=== PATIENT | female | born 1960 | race Caucasian/White ===

== ENCOUNTER 2022-08-07 13:25 | Outpatient (CLI) | payer BC ==
[2022-08-07 14:48] LABS: BASOPHILS % (AUTO) 0.5 % (0-1); EOSINOPHILS # (AUTO) 0.2 X10'3 (0-0.9); EOSINOPHILS % (AUTO) 1.8 % (0-6); LYMPHOCYTES # (AUTO) 1.8 X10'3 (1.1-4.8); LYMPHOCYTES % (AUTO) 21.1 % (21-51); MEAN CORPUSCULAR HEMOGLOBIN 29.3 PG (27.0-31.0); MEAN CORPUSCULAR HGB CONC 32.8 g/dL (33.0-36.5); MEAN PLATELET VOLUME 8.9 FL (7.4-10.4); MONOCYTES # (AUTO) 0.4 X10'3 (0-0.9); MONOCYTES % (AUTO) 5.3 % (2-12); NEUTROPHILS % (AUTO) 71.3 % (42-75); PRE OP HEMATOCRIT 42.2 % (35.0-45.0); PRE OP HEMOGLOBIN 13.9 g/dL (12.0-16.0); PRE OP PLATELET COUNT 199 X10'3 (140-440); RED BLOOD COUNT 4.74 X10'6 (4.20-5.60); RED CELL DISTRIBUTION WIDTH 13.6 % (11.5-14.5)
[2022-08-07 14:57] LABS: HEMOGLOBIN A1C > 12.0 % (4.5-6.2)
[2022-08-07 15:12] LABS: ALBUMIN 3.3 G/DL (3.4-5.0); ALBUMIN/GLOBULIN RATIO 0.8 (1.1-1.5); ALKALINE PHOSPHATASE 136 IU/L (46-116); BLOOD UREA NITROGEN 19 MG/DL (7-18); CALCIUM 9.4 MG/DL (8.5-10.1); CHLORIDE 101 MMOL/L (99-107); CREATININE 1.27 MG/DL (0.40-0.90); PRE OP ALT 18 U/L (30-65); PRE OP ANION GAP 14 (8-16); PRE OP AST 16 U/L (10-37); PRE OP BILIRUB, TOTAL 0.4 MG/DL (0.0-1.0); PRE OP SODIUM 139 MMOL/L (135-145); TOTAL PROTEIN 7.3 G/DL (6.4-8.2); eGFR 43 ML/MIN
[2022-08-07 15:22] LABS: PRE OP GLUCOSE 365 MG/DL (70-104)
[2022-08-07] MEDS ORDERED: METF-438 PO (17:48)
[2022-08-07] MEDS ORDERED: ASPI81TA52 PO (17:48)
[2022-08-07] MEDS ORDERED: EMPA10TA PO (17:48)
[2022-08-07] MEDS ORDERED: ARIP5TAB14 PO (17:48)
[2022-08-07] MEDS ORDERED: EXEN2AUT SQ (17:48)
[2022-08-07] MEDS ORDERED: ATOR80TA PO (17:48)
[2022-08-07] MEDS ORDERED: LEVO200C2 PO (17:48)
[2022-08-07] MEDS ORDERED: INSU100V12 SQ (17:48)
== END 2022-08-07 23:59 | disposition home or self-care (01) ==
LOC: LAB 13:25 → EDSTATUS 08-14 13:15
PROVIDERS: ATTEND Surgery
DX: Z01.812 Encounter for preprocedural laboratory examination (principal); C18.9 Malignant neoplasm of colon, unspecified
CPT/HCPCS: 36415; 80053; 83036; 84443; 85025; 86885; 86900; 86901; 87081; 93005

== ENCOUNTER 2022-09-04 12:45 | Inpatient (IN) | payer BC ==
[2022-08-31 10:12] LABS: BASOPHILS % (AUTO) 0.5 % (0-1); EOSINOPHILS # (AUTO) 0.2 X10'3 (0-0.9); EOSINOPHILS % (AUTO) 2.6 % (0-6); LYMPHOCYTES # (AUTO) 1.7 X10'3 (1.1-4.8); LYMPHOCYTES % (AUTO) 27.4 % (21-51); MEAN CORPUSCULAR HEMOGLOBIN 29.1 PG (27.0-31.0); MEAN CORPUSCULAR HGB CONC 33.2 g/dL (33.0-36.5); MEAN CORPUSCULAR VOLUME 87.7 FL (78-98); MEAN PLATELET VOLUME 8.6 FL (7.4-10.4); MONOCYTES # (AUTO) 0.4 X10'3 (0-0.9); MONOCYTES % (AUTO) 5.8 % (2-12); NEUTROPHILS # (AUTO) 3.9 X10'3 (1.8-7.7); NEUTROPHILS % (AUTO) 63.7 % (42-75); PRE OP HEMATOCRIT 41.8 % (35.0-45.0); PRE OP HEMOGLOBIN 13.9 g/dL (12.0-16.0); PRE OP PLATELET COUNT 169 X10'3 (140-440); RED BLOOD COUNT 4.77 X10'6 (4.20-5.60); RED CELL DISTRIBUTION WIDTH 13.1 % (11.5-14.5)
[2022-08-31 10:20] LABS: ALBUMIN 3.3 G/DL (3.4-5.0); ALBUMIN/GLOBULIN RATIO 0.9 (1.1-1.5); ALKALINE PHOSPHATASE 140 IU/L (46-116); BLOOD UREA NITROGEN 20 MG/DL (7-18); BUN/CREATININE RATIO 16.7 (10.0-20.0); CHLORIDE 104 MMOL/L (99-107); PRE OP ALT 22 U/L (30-65); PRE OP ANION GAP 4 (8-16); PRE OP AST 14 U/L (10-37); PRE OP BILIRUB, TOTAL 0.5 MG/DL (0.0-1.0); PRE OP POTASSIUM 4.3 MMOL/L (3.4-5.1); PRE OP SODIUM 138 MMOL/L (135-145); TOTAL CARBON DIOXIDE 29.6 MMOL/L (24-32); TOTAL PROTEIN 7.1 G/DL (6.4-8.2); eGFR 46 ML/MIN
[2022-08-31 10:21] LABS: PRE OP GLUCOSE 326 MG/DL (70-104)
[2022-08-31 10:54] LABS: HEMOGLOBIN A1C 10.8 % (4.5-6.2)
[~2022-09-04] VITALS: Ht 165.1 cm; Wt 124.3 kg
[2022-09-04] VITALS (9 sets, daily range): BP systolic 113–146; BP diastolic 62–105
[~2022-09-04 12:45] MED LIST: ARIP5TAB14 PO; ASPI-1071 PO; ATOR80TA PO; EMPA10TA PO; ESCI-10 PO; EXEN2AUT SQ; HYDR50TA65 PO; INSU100V12 SQ; LEVO200C2 PO; METF-438 PO; clindamycin-Cleocin 900mg/D5W 50 ML IV ONE; famotidine 20mg tablet PO ONE; gentamicin inj 430 MG in normal saline 100ml IV soln 89.25 ML IV ONE; ringers solution, lacted 1,000 ML IV SCH
[2022-09-04] MEDS ORDERED: naloxone 0.4 mg/ml inj IV PRN (14:30)
[2022-09-04] MEDS ORDERED: normal saline 1000ml 1,000 ML IV SCH (14:30)
[2022-09-04] MEDS: HYDROmorph/NS 0.2 mg/ml PCA 100 ML IV SCH ×6 (15:00→23:15)
[2022-09-04] MEDS ORDERED: morphine 2 MG/ML inj. syringe IV PRN (15:05)
[2022-09-04] MEDS ORDERED: morphine 4 MG/ML inj SYRINge IV PRN (15:05)
[2022-09-04] MEDS ORDERED: ringers solution, lacted 1,000 ML IV SCH (15:05)
[2022-09-04] MEDS ORDERED: meperidine/PF 25mg/ml syringe IV PRN ×3 (15:05)
[2022-09-04] MEDS ORDERED: ondansetron/PF 4mg/2ml inj IV PRN (15:05)
[2022-09-04] MEDS ORDERED: BUPIVAcaine/PF 2.5 mg/ml (0.25%) 30ml vial ONE ×3 (16:02→21:02)
[2022-09-04] MEDS ORDERED: LIDOcaine 1% 30ml preserv. free vial ONE ×2 (16:02→19:32)
[2022-09-04] MEDS ORDERED: fentaNYL /PF 50mcg/ml 5ml ampule ONE (16:14)
[2022-09-04] MEDS ORDERED: midazolam 1 mg/ML 2ml injection ONE (16:14)
[2022-09-04] MEDS ORDERED: propofol inj 20 ML IV ONE (16:14)
[2022-09-04] MEDS ORDERED: rocuronium 10mg/ml inj IV ONE ×3 (16:14→19:36)
[2022-09-04] MEDS ORDERED: sevoflurane 250ml liquid IH ONE (16:19)
[2022-09-04] MEDS ORDERED: acetaminophen 1000 MG/100ml vial IV ONE (16:19)
[2022-09-04] MEDS ORDERED: BUPIVAcaine/PF 2.5mg/ml (0.25%) 10ml vial ONE ×2 (21:02→21:04)
[2022-09-04] MEDS ORDERED: BUPIVACAINE liposomal/PF 13.3 MG/ML vial IM ONE ×2 (21:02→21:04)
[2022-09-04] MEDS ORDERED: ondansetron/PF 4mg/2ml inj ONE (21:30)
[2022-09-04] MEDS ORDERED: neostigmine methylsulfate 1 MG/ML 10ml vial ONE (21:31)
[2022-09-04] MEDS ORDERED: glycopyrrolate 0.2mg/ml inj ONE (21:31)
--- NOTE | 2022-09-04 22:02 | NUR ---
Received from OR via SURGICAL BED , accompanied by Anesthesiologist DR CHANCE and report given by Anesthesiolgist. PT AWAKE, C/O NAUSEA. PT DENIES SIGNIFICANT PAIN ONLY C/O CERVANTES CATHETHER PRESSURE. F/C DRAINING WELL. CHECKED POSITION, WILL CONTINUE TO ASSESS AND MONITOR. DRSG TO ABD ISLAND DRSG W/ SCANT DRAINAGE NOTED. OUTLINED DRAINAGE IN PEN. LAP SITES X 5 CDI. SCD'S ON. IV PATENT.
[2022-09-04] MEDS ORDERED: glucagon, human recombinant 1mg kit SUBCUT PRN (22:20)
[2022-09-04] MEDS ORDERED: DEXTROSE 15 GM of carb/4 tabs (each vial/BOTTLE has 4 tablets) PO PRN ×2 (22:20)
[2022-09-04] MEDS ORDERED: MESSAGE TO PHARMACY PO ONE (22:20)
[2022-09-04] MEDS ORDERED: dextrose 50%-water 50ml dispensing syringe IV PRN ×2 (22:20)
--- NOTE | 2022-09-04 22:40 | NUR ---
Patient in room ORTHO 4012. I have received report from ENRIQUETA Zuñiga and had the opportunity to ask questions and assume patient care.
[2022-09-04] MEDS: proCHLORperazine 10 MG/2 ml inj IV PRN ×2 (22:46→22:47)
--- NOTE | 2022-09-04 23:00 | NUR ---
pt arrived to floor in hospital bed. oriented to room. call light in reach.
--- NOTE | 2022-09-04 23:02 | NUR ---
PT REPORT GIVEN TO ISAEL ROBISON WHO ASSUMED CARE OF PT. HAI ROBISON IN TO RECEIVE PT UPON X KARLO TO ROOM 4012B. PT STATES NAUSEA IS SUBSIDING AND PAIN IS TOLERABLE. DRSGS REMAIN UNCHAGED. IV PATENT. PT USING DILAUDID CADD ORDERED AND WAS EDUCATED ON CADD SAFETY AND SETTINGS. PT ORIENTED TO ROOM . BED LOW, LOCKED, RAILS UP X 2 CALL LIGHT IN REACH. PT PLACED ON TELE ORDERED. FAMILY IN AT BEDSIDE. PT DENIES ANY IMMEDIATE NEEDS AND IS THANKFUL FOR HER CARE AND WAS JOKING WITH PACU STAFF BY END OF HER RECOVERY. ALL BELONGING W/ PT TO ROOM 4012 INCLUDING GLASSES AND C PAP
[2022-09-05] MEDS: atorvastatin 20mg tablet PO SCH ×2 (00:15→21:25)
[2022-09-05] MEDS: insulin glargine (Lantus) pen - multi-dose SQ SCH ×2 (00:51→21:35)
[2022-09-05] MEDS: HYDROmorph/NS 0.2 mg/ml PCA 100 ML IV SCH ×12 (01:00→23:00)
[2022-09-05] MEDS ORDERED: ondansetron/PF 4mg/2ml inj IV PRN (01:20)
[2022-09-05] MEDS ORDERED: proCHLORperazine 10 MG/2 ml inj IV PRN (01:20)
[2022-09-05 02:00] VITALS: BP 135/70
[2022-09-05] MEDS ORDERED: dextrose 50%-water 50ml dispensing syringe IV PRN ×2 (04:45)
[2022-09-05] MEDS ORDERED: DEXTROSE 15 GM of carb/4 tabs (each vial/BOTTLE has 4 tablets) PO PRN ×2 (04:45)
[2022-09-05] MEDS ORDERED: insulin Lispro (HumaLOG) vial - multi-dose SQ SCH (04:45)
[2022-09-05] MEDS ORDERED: glucagon, human recombinant 1mg kit SUBCUT PRN (04:45)
[2022-09-05] MEDS ORDERED: MESSAGE TO PHARMACY PO ONE (04:45)
[2022-09-05] MEDS ORDERED: pantoprazole 40MG/NS 100ML BAG 100 ML IV ONE ×2 (05:30→05:44)
[2022-09-05 06:00] VITALS: BP 128/68
[2022-09-05 06:33] LABS: BASOPHILS % (AUTO) 0.1 % (0-1); EOSINOPHILS % (AUTO) 0 % (0-6); HEMOGLOBIN 13.4 g/dl (12.0-16.0); LYMPHOCYTES # (AUTO) 0.4 X10'3 (1.1-4.8); LYMPHOCYTES % (AUTO) 6.4 % (21-51); MEAN CORPUSCULAR HEMOGLOBIN 28.7 PG (27.0-31.0); MEAN CORPUSCULAR HGB CONC 32.6 g/dL (33.0-36.5); MEAN PLATELET VOLUME 9.2 FL (7.4-10.4); MONOCYTES # (AUTO) 0.4 X10'3 (0-0.9); MONOCYTES % (AUTO) 5.1 % (2-12); NEUTROPHILS # (AUTO) 6.1 X10'3 (1.8-7.7); NEUTROPHILS % (AUTO) 88.4 % (42-75); PLATELET COUNT 148 X10'3 (140-440); RED BLOOD COUNT 4.66 X10'6 (4.20-5.60); WHITE BLOOD COUNT 6.9 X10'3 (4.5-11.0)
[2022-09-05] MEDS: normal saline 1000ml 1,000 ML IV SCH ×4 (06:46→21:15)
[2022-09-05 06:52] LABS: ALBUMIN 2.6 G/DL (3.4-5.0); ANION GAP 9 (8-16); BLOOD UREA NITROGEN 15 MG/DL (7-18); BUN/CREATININE RATIO 10.7 (10.0-20.0); CALCIUM 8.3 MG/DL (8.5-10.1); CHLORIDE 105 MMOL/L (99-107); GLUCOSE 390 MG/DL (70-104); LIPASE < 50 U/L (73-393); POTASSIUM 4.8 MMOL/L (3.5-5.1); SODIUM 138 MMOL/L (135-145); eGFR 38 ML/MIN
[2022-09-05 06:53] LABS: CREATINE KINASE 1188 U/L (26-192)
[2022-09-05] MEDS: aripiprazole 5mg tablet PO SCH (07:42)
[2022-09-05] MEDS: ESCITALOPRAM OXALATE 5 MG TABLET PO SCH (07:42)
[2022-09-05] MEDS: levoTHYROXINE 100mcg tablet PO SCH (07:42)
[2022-09-05] MEDS ORDERED: ESCITALOPRAM OXALATE 5 MG TABLET PO SCH (08:00)
[2022-09-05] MEDS: enoxaparin 40mg/0.4ml syringe SQ SCH (08:00)
[2022-09-05] MEDS ORDERED: non-formulary drug (Escitalopram Oxalate (Lexapro) 1 TAB) PO SCH (08:00)
--- NOTE | 2022-09-05 08:00 | NUR ---
Held lovenox due to incision bleeding Dr Garay aware
[2022-09-05] MEDS: insulin Lispro (HumaLOG) vial - multi-dose SQ SCH ×4 (08:55→21:37)
[2022-09-05 10:00] VITALS: BP 89/56
--- NOTE | 2022-09-05 12:36 | NUR ---
DM consult: Pt seen at bedside. Pt reports working with a dietitian at [facility] every 3 months for diabetes management. Pt reports improved blood glucose and HbA1c which is consistent with the EMR documentation of HbA1c of 10.9% this admission vs A1c >12% on 08/07. Pt reports checking her BG in the morning and at night and usual BG of 200s and no difficulties with hypoglycemia. Pt reports improved breakfast dietary pattern but continues to struggle with fast food. Pt also reports difficulties with healthy eating during her lunch workdays d/t time constraint. Pt presented with nausea during the time of visit so discussion was shortened. Pt agreeable to reading DM education materials provided on her own time. Pt provided with RD contact information and encouraged to reach out if needed. Will continue to monitor for nutrition interventions. Addendum: 09/05/22 at [address] Amended: Links added. Addendum: 09/05/22 at [address] I have reviewed and agree with note. Kristen Matute, RD
[2022-09-05] MEDS ORDERED: normal saline 500ml IV soln 500 ML IV ONE (15:20)
--- NOTE | 2022-09-05 15:40 | NUR ---
Dr Adan aware patients incision had some sanguinous drainage that soaked through island dressing. Dressing changed and no longer draining, Dr Adan aware Dr Garay was ok with holding Lovenox this am. Per Dr Adan he would like lovenox given. Will give Lovenox per Dr Naylor orders.
[2022-09-05] MEDS ORDERED: enoxaparin 40mg/0.4ml syringe SQ ONE (15:45)
[2022-09-05 18:00] VITALS: BP 107/63
--- NOTE | 2022-09-05 18:44 | NUR ---
Patient in room ORTHO 4012. I have received report from ENRIQUETA Carver and had the opportunity to ask questions and assume patient care.
--- NOTE | 2022-09-05 19:14 | NUR ---
Problems reprioritized. Patient report given, questions answered & plan of care reviewed with Shauna ROBISON.
[2022-09-05] MEDS ORDERED: insulin glargine (Lantus) pen - multi-dose SQ SCH (21:00)
[2022-09-05 22:00] VITALS: BP 109/50
[2022-09-06] MEDS: HYDROmorph/NS 0.2 mg/ml PCA 100 ML IV SCH ×4 (01:00→07:00)
[2022-09-06] MEDS: normal saline 1000ml 1,000 ML IV SCH ×3 (03:40→15:58)
[2022-09-06 06:00] VITALS: BP 111/50
--- NOTE | 2022-09-06 06:13 | NUR ---
Problems reprioritized. Patient report given, questions answered & plan of care reviewed with SHARONDA Castillo.
--- NOTE | 2022-09-06 06:44 | NUR ---
Patient in room ORTHO 4012. I have received report from ENRIQUETA Villatoro and had the opportunity to ask questions and assume patient care.
[2022-09-06 07:14] LABS: BASOPHILS % (AUTO) 0.4 % (0-1); EOSINOPHILS # (AUTO) 0.2 X10'3 (0-0.9); EOSINOPHILS % (AUTO) 1.9 % (0-6); HEMOGLOBIN 12.1 g/dl (12.0-16.0); LYMPHOCYTES # (AUTO) 0.9 X10'3 (1.1-4.8); LYMPHOCYTES % (AUTO) 9.8 % (21-51); MEAN CORPUSCULAR HEMOGLOBIN 28.8 PG (27.0-31.0); MEAN CORPUSCULAR HGB CONC 32.6 g/dL (33.0-36.5); MEAN CORPUSCULAR VOLUME 88.2 FL (78-98); MEAN PLATELET VOLUME 9.3 FL (7.4-10.4); MONOCYTES # (AUTO) 0.5 X10'3 (0-0.9); MONOCYTES % (AUTO) 5.1 % (2-12); NEUTROPHILS # (AUTO) 7.4 X10'3 (1.8-7.7); NEUTROPHILS % (AUTO) 82.8 % (42-75); PLATELET COUNT 178 X10'3 (140-440); RED BLOOD COUNT 4.19 X10'6 (4.20-5.60); WHITE BLOOD COUNT 8.9 X10'3 (4.5-11.0)
[2022-09-06 07:25] LABS: ALBUMIN 2.2 G/DL (3.4-5.0); ANION GAP 7 (8-16); BLOOD UREA NITROGEN 23 MG/DL (7-18); BUN/CREATININE RATIO 14.8 (10.0-20.0); CHLORIDE 107 MMOL/L (99-107); CREATININE 1.55 MG/DL (0.40-0.90); GLUCOSE 222 MG/DL (70-104); POTASSIUM 3.9 MMOL/L (3.5-5.1); SODIUM 139 MMOL/L (135-145); TOTAL CARBON DIOXIDE 25.1 MMOL/L (24-32); eGFR 34 ML/MIN
[2022-09-06] MEDS: insulin Lispro (HumaLOG) vial - multi-dose SQ SCH ×3 (08:46→20:11)
[2022-09-06] MEDS: ESCITALOPRAM OXALATE 5 MG TABLET PO SCH (08:48)
[2022-09-06] MEDS: levoTHYROXINE 100mcg tablet PO SCH (08:48)
[2022-09-06] MEDS: aripiprazole 5mg tablet PO SCH (08:49)
[2022-09-06] MEDS: enoxaparin 40mg/0.4ml syringe SQ SCH (08:50)
[2022-09-06 11:00] VITALS: BP 110/56
[2022-09-06] MEDS ORDERED: HYDROcodone/acetaminophen 5mg/325mg tablet PO PRN (11:00)
[2022-09-06] MEDS ORDERED: PCA WASTE DOCUMENTATION 1 MG ML MC ONE (12:15)
--- NOTE | 2022-09-06 14:18 | NUR ---
PAGER ID: [phone] MESSAGE: Mine Powers [id number]. Patient has DC orders from ortho, okay to DC? Thank you, Anna [phone]. Addendum: 09/06/22 at 1418 by Anna Sky LVN RACE STEWARD Wrong patient.
--- NOTE | 2022-09-06 17:40 | NUR ---
COFFEE SHOP AIDE documentation: I have reviewed and agree with all interventions, assessments performed and documented by Anna Nino LVN.
[2022-09-06 18:00] VITALS: BP 116/70
--- NOTE | 2022-09-06 18:24 | NUR ---
Problems reprioritized. Patient report given, questions answered & plan of care reviewed with ENRIQUETA Villatoro.
--- NOTE | 2022-09-06 18:25 | NUR ---
Patient in room ORTHO 4012. I have received report from SHARONDA Castillo and had the opportunity to ask questions and assume patient care.
[2022-09-06] MEDS: atorvastatin 20mg tablet PO SCH (20:05)
[2022-09-06] MEDS: insulin glargine (Lantus) pen - multi-dose SQ SCH (21:40)
[2022-09-06 22:00] VITALS: BP 105/55
[2022-09-07 06:00] VITALS: BP 102/50
--- NOTE | 2022-09-07 06:28 | NUR ---
Problems reprioritized. Patient report given, questions answered & plan of care reviewed with SHARONDA Castillo.
--- NOTE | 2022-09-07 06:37 | NUR ---
Patient in room ORTHO 4012. I have received report from [ENRIQUETA Villatoro] and had the opportunity to ask questions and assume patient care.
[2022-09-07] MEDS: normal saline 1000ml 1,000 ML IV SCH (07:10)
[2022-09-07 08:19] LABS: ALBUMIN 1.7 G/DL (3.4-5.0); ANION GAP 7 (8-16); BLOOD UREA NITROGEN 17 MG/DL (7-18); BUN/CREATININE RATIO 15.7 (10.0-20.0); CALCIUM 7.9 MG/DL (8.5-10.1); CHLORIDE 108 MMOL/L (99-107); CREATININE 1.08 MG/DL (0.40-0.90); GLUCOSE 204 MG/DL (70-104); POTASSIUM 3.8 MMOL/L (3.5-5.1); SODIUM 139 MMOL/L (135-145); TOTAL CARBON DIOXIDE 24.4 MMOL/L (24-32); eGFR 52 ML/MIN
[2022-09-07 08:48] LABS: BASOPHILS % (AUTO) 0.3 % (0-1); EOSINOPHILS # (AUTO) 0.3 X10'3 (0-0.9); EOSINOPHILS % (AUTO) 4.5 % (0-6); HEMATOCRIT 30.5 % (35.0-45.0); LYMPHOCYTES % (AUTO) 12.8 % (21-51); MEAN CORPUSCULAR HGB CONC 32.9 g/dL (33.0-36.5); MEAN CORPUSCULAR VOLUME 88.4 FL (78-98); MEAN PLATELET VOLUME 9.2 FL (7.4-10.4); MONOCYTES # (AUTO) 0.4 X10'3 (0-0.9); MONOCYTES % (AUTO) 5.1 % (2-12); NEUTROPHILS # (AUTO) 5.8 X10'3 (1.8-7.7); NEUTROPHILS % (AUTO) 77.3 % (42-75); PLATELET COUNT 130 X10'3 (140-440); RED BLOOD COUNT 3.45 X10'6 (4.20-5.60); RED CELL DISTRIBUTION WIDTH 13.8 % (11.5-14.5); WHITE BLOOD COUNT 7.5 X10'3 (4.5-11.0)
[2022-09-07] MEDS: insulin Lispro (HumaLOG) vial - multi-dose SQ SCH ×3 (09:44→19:02)
[2022-09-07] MEDS: aripiprazole 5mg tablet PO SCH (09:45)
[2022-09-07] MEDS: levoTHYROXINE 100mcg tablet PO SCH (09:46)
[2022-09-07] MEDS: ESCITALOPRAM OXALATE 5 MG TABLET PO SCH (09:46)
[2022-09-07] MEDS: enoxaparin 40mg/0.4ml syringe SQ SCH (09:48)
[2022-09-07 10:00] VITALS: BP 124/69
--- NOTE | 2022-09-07 17:30 | NUR ---
POLICE RECORDS CLERK documentation: I have reviewed and agree with all interventions, assessments performed and documented by Anna Nino LVN.
[2022-09-07 18:00] VITALS: BP 109/56
--- NOTE | 2022-09-07 18:08 | NUR ---
Problems reprioritized. Patient report given, questions answered & plan of care reviewed with ENRIQUETA Bryant.
--- NOTE | 2022-09-07 18:30 | NUR ---
Patient in room ORTHO 4012. I have received report from Anna MCDONOUGH and had the opportunity to ask questions and assume patient care.
[2022-09-07] MEDS: atorvastatin 20mg tablet PO SCH (20:07)
[2022-09-07] MEDS: insulin glargine (Lantus) pen - multi-dose SQ SCH (20:58)
[2022-09-07 22:00] VITALS: BP 91/46
[2022-09-07] MEDS: acetaminophen 325mg tablet PO PRN (23:58)
[2022-09-08 06:00] VITALS: BP 116/62
--- NOTE | 2022-09-08 06:37 | NUR ---
Problems reprioritized. Patient report given, questions answered & plan of care reviewed with Anna MCDONOUGH.
--- NOTE | 2022-09-08 06:43 | NUR ---
Patient in room ORTHO 4012. I have received report from ENRIQUETA Bryant and had the opportunity to ask questions and assume patient care.
[2022-09-08 06:55] LABS: BASOPHILS % (AUTO) 0.5 % (0-1); EOSINOPHILS # (AUTO) 0.4 X10'3 (0-0.9); EOSINOPHILS % (AUTO) 5.2 % (0-6); HEMATOCRIT 32.2 % (35.0-45.0); HEMOGLOBIN 10.6 g/dl (12.0-16.0); LYMPHOCYTES # (AUTO) 0.9 X10'3 (1.1-4.8); LYMPHOCYTES % (AUTO) 11.5 % (21-51); MEAN CORPUSCULAR HEMOGLOBIN 29.1 PG (27.0-31.0); MEAN CORPUSCULAR HGB CONC 33.1 g/dL (33.0-36.5); MEAN CORPUSCULAR VOLUME 88.1 FL (78-98); MEAN PLATELET VOLUME 8.7 FL (7.4-10.4); MONOCYTES # (AUTO) 0.5 X10'3 (0-0.9); MONOCYTES % (AUTO) 6.8 % (2-12); NEUTROPHILS # (AUTO) 5.8 X10'3 (1.8-7.7); PLATELET COUNT 170 X10'3 (140-440); RED BLOOD COUNT 3.65 X10'6 (4.20-5.60); RED CELL DISTRIBUTION WIDTH 13.6 % (11.5-14.5); WHITE BLOOD COUNT 7.6 X10'3 (4.5-11.0)
[2022-09-08 07:02] LABS: ALBUMIN 1.8 G/DL (3.4-5.0); ANION GAP 7 (8-16); BLOOD UREA NITROGEN 12 MG/DL (7-18); BUN/CREATININE RATIO 10.5 (10.0-20.0); CALCIUM 8.5 MG/DL (8.5-10.1); CHLORIDE 105 MMOL/L (99-107); CREATININE 1.14 MG/DL (0.40-0.90); GLUCOSE 174 MG/DL (70-104); POTASSIUM 3.7 MMOL/L (3.5-5.1); SODIUM 138 MMOL/L (135-145); TOTAL CARBON DIOXIDE 25.7 MMOL/L (24-32); eGFR 48 ML/MIN
[2022-09-08] MEDS: insulin Lispro (HumaLOG) vial - multi-dose SQ SCH ×3 (08:31→18:52)
[2022-09-08] MEDS: levoTHYROXINE 100mcg tablet PO SCH (08:34)
[2022-09-08] MEDS: ESCITALOPRAM OXALATE 5 MG TABLET PO SCH (08:34)
[2022-09-08] MEDS: aripiprazole 5mg tablet PO SCH (08:35)
[2022-09-08] MEDS: enoxaparin 40mg/0.4ml syringe SQ SCH (08:36)
[2022-09-08 10:00] VITALS: BP 94/58
--- NOTE | 2022-09-08 12:30 | NUR ---
PAGER ID: [phone] MESSAGE: Patience Carpenter [id number]. Per case management patient will not be able to go to [facility] until at least Saturday. Thank you, Anna [phone]
--- NOTE | 2022-09-08 14:35 | NUR ---
CRIME LAB ANALYST documentation: I have reviewed and agree with all interventions, assessments performed and documented by Anna Nino LVN.
[2022-09-08 18:00] VITALS: BP 103/52
--- NOTE | 2022-09-08 18:22 | NUR ---
Problems reprioritized. Patient report given, questions answered & plan of care reviewed with SHARONDA Goodman.
--- NOTE | 2022-09-08 18:25 | NUR ---
Patient in room ORTHO 4012. I have received report from Anna MCDONOUGH and had the opportunity to ask questions and assume patient care.
[2022-09-08] MEDS: atorvastatin 20mg tablet PO SCH (20:32)
[2022-09-08] MEDS: insulin glargine (Lantus) pen - multi-dose SQ SCH (21:00)
[2022-09-08] MEDS: acetaminophen 325mg tablet PO PRN (21:44)
--- NOTE | 2022-09-08 21:48 | NUR ---
informed that pts blood sugar was 97 at 2100. ordered to hold Nostalgia Bingo.
[2022-09-08 22:51] VITALS: BP 129/51
--- NOTE | 2022-09-09 05:22 | NUR ---
Agree with Maxine MCDONOUGH assessment except where I documented my findings.
[2022-09-09 06:00] VITALS: BP 97/42
--- NOTE | 2022-09-09 06:18 | NUR ---
Problems reprioritized. Patient report given, questions answered & plan of care reviewed with Norbert MCDONOUGH.
--- NOTE | 2022-09-09 06:23 | NUR ---
Patient in room ORTHO 4012. I have received report from SHARONDA Goodman and had the opportunity to ask questions and assume patient care.
[2022-09-09 06:45] LABS: ALBUMIN 1.6 G/DL (3.4-5.0); ANION GAP 7 (8-16); BLOOD UREA NITROGEN 10 MG/DL (7-18); BUN/CREATININE RATIO 9.4 (10.0-20.0); CALCIUM 8.3 MG/DL (8.5-10.1); CHLORIDE 104 MMOL/L (99-107); CREATININE 1.06 MG/DL (0.40-0.90); GLUCOSE 147 MG/DL (70-104); POTASSIUM 3.4 MMOL/L (3.5-5.1); SODIUM 137 MMOL/L (135-145); TOTAL CARBON DIOXIDE 25.7 MMOL/L (24-32); eGFR 53 ML/MIN
[2022-09-09 06:50] LABS: BASOPHILS % (AUTO) 0.3 % (0-1); EOSINOPHILS # (AUTO) 0.3 X10'3 (0-0.9); EOSINOPHILS % (AUTO) 3.3 % (0-6); HEMATOCRIT 29.9 % (35.0-45.0); LYMPHOCYTES % (AUTO) 11.4 % (21-51); MEAN CORPUSCULAR HGB CONC 33.4 g/dL (33.0-36.5); MEAN CORPUSCULAR VOLUME 86.8 FL (78-98); MEAN PLATELET VOLUME 8.6 FL (7.4-10.4); MONOCYTES # (AUTO) 0.7 X10'3 (0-0.9); MONOCYTES % (AUTO) 7.8 % (2-12); NEUTROPHILS # (AUTO) 6.5 X10'3 (1.8-7.7); NEUTROPHILS % (AUTO) 77.2 % (42-75); PLATELET COUNT 187 X10'3 (140-440); RED BLOOD COUNT 3.45 X10'6 (4.20-5.60); RED CELL DISTRIBUTION WIDTH 13.7 % (11.5-14.5); WHITE BLOOD COUNT 8.5 X10'3 (4.5-11.0)
[2022-09-09] MEDS: aripiprazole 5mg tablet PO SCH (07:19)
[2022-09-09] MEDS: levoTHYROXINE 100mcg tablet PO SCH (07:19)
[2022-09-09] MEDS: ESCITALOPRAM OXALATE 5 MG TABLET PO SCH (07:19)
[2022-09-09] MEDS: enoxaparin 40mg/0.4ml syringe SQ SCH (07:20)
[2022-09-09 10:00] VITALS: BP 113/61
--- NOTE | 2022-09-09 13:32 | NUR ---
Initial: Pt admit DX colon CA s/p open partial colectomy, NESHA w/ CKD, depression/CHAPIS, and DM per EMR. Pt PO 0-25% initial clear liquids meals first 2 days post-op advanced to carb control/full liquids diet 09/07 PO ~50% avg overall not meeting nutrition needs. Pt seen by RD at bedside for verbal high protein diet ed w/ Ensure ONS coupons provided. Pt had questions regarding diet advancement post-op; RD verbally educated pt on diet advancement per physician though recommended and verbally reviewed low-fiber diet w/ transition to regular diet as tolerated. RD encouraged pt to contact dietitian's office if further nutrition questions/concerns. Pt is agreeable to chocolate Ensure Enlive TIDWM; RD d/w MD/CIRCUS RIDER at nursing station MD agreeable and CIRCUS RIDER able to take physician order for ONS. Pending ONS entry in EMR at this time; dietary notified of flavr preference once in EMR. Given mild weakness, BLE 2+ edema, and 5 days poor nutrition intake pt meets minimum non-severe malnutrition criteria-MD notified. LBM 09/07. Will monitor for further nutrition intervention needs this admit. Rec: 1. advance to low-fiber diet as medically indicated 2. chocolate Ensure Enlive TIDWM; pending entry by CIRCUS RIDER in EMR 3. routine bowel care 4. weekly wt Addendum: 09/09/22 at [address] Amended: Links added.
[2022-09-09] MEDS: insulin Lispro (HumaLOG) vial - multi-dose SQ SCH ×2 (14:51→19:05)
--- NOTE | 2022-09-09 17:00 | NUR ---
I have reviewed and agree with interventions, assessments, and documentation by Norbert Jalloh LVN.
[2022-09-09 18:00] VITALS: BP 112/54
--- NOTE | 2022-09-09 18:31 | NUR ---
Problems reprioritized. Patient report given, questions answered & plan of care reviewed with SHARONDA Goodman.
--- NOTE | 2022-09-09 18:42 | NUR ---
Patient in room ORTHO 4012. I have received report from Norbert MCDONOUGH and had the opportunity to ask questions and assume patient care.
[2022-09-09] MEDS: atorvastatin 20mg tablet PO SCH (20:43)
[2022-09-09] MEDS: insulin glargine (Lantus) pen - multi-dose SQ SCH (21:00)
[2022-09-09 22:00] VITALS: BP 97/57
--- NOTE | 2022-09-10 04:45 | NUR ---
DIP TANKER documentation: I have reviewed and agree with assessment performed and documented by JUDI Jeronimo
[2022-09-10 06:00] VITALS: BP_SYST 102; BP_SYST 97; BP_DIAS 57; BP_DIAS 60
--- NOTE | 2022-09-10 06:25 | NUR ---
Patient in room ORTHO 4012. I have received report from Bijan MCDONOUGH and had the opportunity to ask questions and assume patient care.
--- NOTE | 2022-09-10 06:35 | NUR ---
Problems reprioritized. Patient report given, questions answered & plan of care reviewed with Zina MCDONOUGH.
--- NOTE | 2022-09-10 07:21 | NUR ---
PAGER ID: [phone] MESSAGE: [id number]- Fish, K- Patient potassium is 3.4. No protocol in patient eMAR. Pls advise? BRYANT Izaguirre 1997
[2022-09-10] MEDS: lactose-reduced food (Ensure Enlive) - 237ml bottle PO SCH ×4 (08:00→18:55)
[2022-09-10] MEDS: enoxaparin 40mg/0.4ml syringe SQ SCH (08:04)
[2022-09-10] MEDS: ESCITALOPRAM OXALATE 5 MG TABLET PO SCH (08:04)
[2022-09-10] MEDS: aripiprazole 5mg tablet PO SCH (08:04)
[2022-09-10] MEDS: levoTHYROXINE 100mcg tablet PO SCH (08:04)
--- NOTE | 2022-09-10 08:30 | NUR ---
Patient didn't get Ensure on her breakfast tray
[2022-09-10 10:00] VITALS: BP 114/60
[2022-09-10] MEDS ORDERED: magnesium 2GM in 50ml NS 50 ML IV PRN (10:20)
[2022-09-10] MEDS ORDERED: potassium Cl 20 mEq SR tablet PO PRN (10:20)
[2022-09-10] MEDS ORDERED: potassium Cl 40MEQ/1/2NS 520ml 520 ML IV PRN (10:20)
[2022-09-10] MEDS ORDERED: magnesium 4gm in 100ml NS 100 ML IV PRN (10:20)
[2022-09-10] MEDS ORDERED: magnesium Cl slow-release 64mg tablet PO PRN (10:20)
[2022-09-10] MEDS: insulin Lispro (HumaLOG) vial - multi-dose SQ SCH ×3 (10:38→19:07)
[2022-09-10] MEDS: potassium Cl 20 mEq SR tablet PO PRN ×3 (10:39→20:02)
--- NOTE | 2022-09-10 10:51 | NUR ---
Patient K is low at 3.4. Potassium replacement initated agve her 20MEQ but unable to take the first round. Patient spit it back out. I attempted to give her another dose and she was able to tolerate it at this time. Next dose scheduled at 1420
--- NOTE | 2022-09-10 12:49 | NUR ---
Noticed that patient midline anais has some drainage. The color is red and has a egg smell. Patient anais or surgical site aren't dehiscing. I called Dr. Adan and advised him of what I observed. Dr. Adan said that is okay and okay for patient, patient has scare tissue and has a large abdomen. Its okay to place an abd pad on the site.
--- NOTE | 2022-09-10 17:30 | NUR ---
I have reviewed and agree with interventions, assessments, and documentation by Zina Uriostegui LVN.
[2022-09-10 18:00] VITALS: BP 105/62
--- NOTE | 2022-09-10 18:30 | NUR ---
gave report to Bijan MCDONOUGH
[2022-09-10] MEDS: K and/or MAG REPLACEMENT MC SCH (19:00)
[2022-09-10] MEDS: atorvastatin 20mg tablet PO SCH (20:01)
[2022-09-10] MEDS: insulin glargine (Lantus) pen - multi-dose SQ SCH (21:00)
[2022-09-10 22:00] VITALS: BP 106/63
--- NOTE | 2022-09-11 02:46 | NUR ---
ENTERTAINMENT DANCER documentation: I have reviewed and agree with assessment performed and documented by JUDI Scruggs
[2022-09-11 06:00] VITALS: BP 108/61
--- NOTE | 2022-09-11 06:53 | NUR ---
Patient in room ORTHO 4012. I have received report from JUDI MCDONOUGH and had the opportunity to ask questions and assume patient care.
[2022-09-11 07:41] LABS: MAGNESIUM 1.7 MG/DL (1.5-2.4); POTASSIUM 3.6 MMOL/L (3.5-5.1)
[2022-09-11] MEDS: K and/or MAG REPLACEMENT MC SCH ×2 (08:00→20:00)
[2022-09-11] MEDS: levoTHYROXINE 100mcg tablet PO SCH (08:07)
[2022-09-11] MEDS: lactose-reduced food (Ensure Enlive) - 237ml bottle PO SCH ×3 (08:08→18:51)
[2022-09-11] MEDS: enoxaparin 40mg/0.4ml syringe SQ SCH (08:08)
[2022-09-11] MEDS: ESCITALOPRAM OXALATE 5 MG TABLET PO SCH (08:08)
[2022-09-11] MEDS: aripiprazole 5mg tablet PO SCH (08:08)
[2022-09-11] MEDS: insulin Lispro (HumaLOG) vial - multi-dose SQ SCH ×3 (09:09→18:51)
[2022-09-11 10:00] VITALS: BP 100/58
--- NOTE | 2022-09-11 17:27 | NUR ---
patient has had copious amounts of serous drainage. colostomy collection bag placed collecting fluid. seen by Dr Adan wound culture obtained. patient is for possible surgery in am, please see Dr parada note
[2022-09-11 18:00] VITALS: BP 106/51
[2022-09-11] MEDS: metroNIDAZOLE-Flagyl 500mg/NS 100 ML IV SCH (18:37)
[2022-09-11] MEDS: levoFLOXACIN-Levaquin 500mg/D5 100 ML IV SCH (20:50)
[2022-09-11] MEDS: atorvastatin 20mg tablet PO SCH (20:53)
[2022-09-11] MEDS: insulin glargine (Lantus) pen - multi-dose SQ SCH (21:00)
[2022-09-11 22:00] VITALS: BP 92/49
--- NOTE | 2022-09-11 23:49 | NUR ---
sample sent for culture per Dr parada request
[2022-09-12] VITALS (12 sets, daily range): BP systolic 94–113; BP diastolic 46–63
--- NOTE | 2022-09-12 00:15 | NUR ---
Problems reprioritized. Patient report given, questions answered & plan of care reviewed with Karey ROBISON.
[2022-09-12] MEDS: metroNIDAZOLE-Flagyl 500mg/NS 100 ML IV SCH ×3 (00:23→16:08)
--- NOTE | 2022-09-12 06:33 | NUR ---
Patient in room ORTHO 4012. I have received report from june and had the opportunity to ask questions and assume patient care.
[2022-09-12] MEDS: lactose-reduced food (Ensure Enlive) - 237ml bottle PO SCH ×3 (06:49→18:00)
[2022-09-12] MEDS: enoxaparin 40mg/0.4ml syringe SQ SCH (06:49)
[2022-09-12 07:05] LABS: MAGNESIUM 1.8 MG/DL (1.5-2.4); POTASSIUM 3.4 MMOL/L (3.5-5.1)
[2022-09-12] MEDS: K and/or MAG REPLACEMENT MC SCH ×2 (07:27→20:00)
[2022-09-12] MEDS: aripiprazole 5mg tablet PO SCH (07:31)
[2022-09-12] MEDS: levoTHYROXINE 100mcg tablet PO SCH (07:31)
[2022-09-12] MEDS: ESCITALOPRAM OXALATE 5 MG TABLET PO SCH (07:32)
[2022-09-12 08:05] LABS: BASOPHILS % (AUTO) 0.5 % (0-1); EOSINOPHILS # (AUTO) 0.3 X10'3 (0-0.9); EOSINOPHILS % (AUTO) 2.9 % (0-6); HEMATOCRIT 30.5 % (35.0-45.0); LYMPHOCYTES # (AUTO) 1.2 X10'3 (1.1-4.8); LYMPHOCYTES % (AUTO) 12.8 % (21-51); MEAN CORPUSCULAR HEMOGLOBIN 28.5 PG (27.0-31.0); MEAN CORPUSCULAR HGB CONC 32.7 g/dL (33.0-36.5); MEAN CORPUSCULAR VOLUME 87.2 FL (78-98); MEAN PLATELET VOLUME 8.6 FL (7.4-10.4); MONOCYTES # (AUTO) 0.7 X10'3 (0-0.9); MONOCYTES % (AUTO) 7.8 % (2-12); PLATELET COUNT 312 X10'3 (140-440); RED CELL DISTRIBUTION WIDTH 13.7 % (11.5-14.5); WHITE BLOOD COUNT 9.2 X10'3 (4.5-11.0)
[2022-09-12] MEDS: levoFLOXACIN-Levaquin 500mg/D5 100 ML IV SCH (08:41)
[2022-09-12 08:46] LABS: ALBUMIN 1.4 G/DL (3.4-5.0); ANION GAP 9 (8-16); BLOOD UREA NITROGEN 13 MG/DL (7-18); BUN/CREATININE RATIO 11.7 (10.0-20.0); CALCIUM 8.3 MG/DL (8.5-10.1); CHLORIDE 101 MMOL/L (99-107); CREATININE 1.11 MG/DL (0.40-0.90); GLUCOSE 158 MG/DL (70-104); SODIUM 137 MMOL/L (135-145); TOTAL CARBON DIOXIDE 26.7 MMOL/L (24-32); eGFR 50 ML/MIN
[2022-09-12] MEDS: insulin Lispro (HumaLOG) vial - multi-dose SQ SCH ×2 (08:52→12:43)
--- NOTE | 2022-09-12 11:14 | NUR ---
F/u 09/12: Pt full liquids diet stopped 09/09 [facility] now on carb controlled diet since PO ~71% avg meals since advancement to solids and ~70% avg Ensure Enlive TIDWM meeting estimated needs. Noted pt NPO for OR this AM for wound exploration, washout, and wound vac placement per MD note. LBM 09/12. Will monitor for further PO trends and nutrition intervention needs post-op. Rec: 1. continue carb controlled diet; consider low-residue diet addition per physician discretion 2. chocolate Ensure Enlive TIDWM; encourage PO 3. routine bowel care 4. weekly wt Addendum: 09/12/22 at [address] Amended: Links added.
--- NOTE | 2022-09-12 14:27 | NUR ---
PRESSURE ULCER EDUCATION: DEFINITION: A pressure ulcer is an area of skin that breaks down when you stay in one position too long. The constant pressure against the skin reduces the blood flow to that area and the affected tissue dies. CAUSES: "Being bedridden or in a wheelchair "Fragile skin "Having a chronic condition, such as diabetes or vascular disease "Inability to move certain parts of your body without assistance "Older age "Incontinence of urine or stool SYMPTOMS: "A reddened area that DOES NOT turn white when pressed on - this can be the beginning of a pressure ulcer "A blister, deep sore or a crater - these can be advanced pressure ulcers FIRST AID: "Relieve the pressure on this area "Keep the area clean and dry "Call your primary doctor if you see any of the above symptoms "DO NOT massage the area "DO NOT use a donut shaped or ring shaped pillow- these actually interfere with the blood flow and cause complications PREVENTION: "Check for pressure ulcers everyday "Change position at least every two hours to relieve pressure "Use items that help relieve pressure- pillows, sheepskin, foam padding, and powders. "Keep skin clean and dry "Eat healthy well balanced meals "Exercise daily IF YOU SEE ANY OF THESE SYMPTOMS WHILE IN THE HOSPITAL - TELL YOUR NURSE IMMEDIATELY. IF YOU SEE ANY OF THESE SYMPTOMS WHILE AT HOME OR HAVE ANY QUESTIONS OR CONCERNS ABOUT PRESSURE ULCERS - CALL YOUR PRIMARY DOCTOR IMMEDIATELY. Addendum: 09/12/22 at 1428 by Missy Zhang LVN Amended: Links added.
--- NOTE | 2022-09-12 18:30 | NUR ---
Patient in room ORTHO 4012. I have received report from ENRIQUETA Siegel and had the opportunity to ask questions and assume patient care.
--- NOTE | 2022-09-12 18:30 | NUR ---
Problems reprioritized. Patient report given, questions answered & plan of care reviewed with CORKY .
[2022-09-12] MEDS ORDERED: BUPIVAcaine/PF 2.5 mg/ml (0.25%) 30ml vial ONE (20:54)
[2022-09-12] MEDS ORDERED: BUPIVACAINE liposomal/PF 13.3 MG/ML vial IM ONE (20:54)
[2022-09-12] MEDS ORDERED: LIDOcaine 1% 30ml preserv. free vial ONE (20:54)
[2022-09-12] MEDS ORDERED: hydrALAZINE 20mg/ml inj. IV PRN (20:55)
[2022-09-12] MEDS ORDERED: ondansetron/PF 4mg/2ml inj IV PRN (20:55)
[2022-09-12] MEDS ORDERED: proCHLORperazine 10 MG/2 ml inj IV PRN (20:55)
[2022-09-12] MEDS ORDERED: morphine 4 MG/ML inj SYRINge IV PRN (20:55)
[2022-09-12] MEDS ORDERED: acetaminophen 1,000mg/100ml IV 100 ML IV PRN (20:55)
[2022-09-12] MEDS ORDERED: morphine 2 MG/ML inj. syringe IV PRN (20:55)
[2022-09-12] MEDS ORDERED: HYDROmorphone/PF 0.2 MG/ML SYRINGE IV PRN ×2 (20:55)
[2022-09-12] MEDS ORDERED: labetalol 20mg/4ml (5mg/ml) syringe IV PRN (20:55)
[2022-09-12] MEDS ORDERED: ringers solution, lacted 1,000 ML IV SCH (20:55)
[2022-09-12] MEDS: insulin glargine (Lantus) pen - multi-dose SQ SCH (21:00)
[2022-09-12] MEDS: atorvastatin 20mg tablet PO SCH (21:00)
[2022-09-12] MEDS ORDERED: sevoflurane 250ml liquid IH ONE (21:01)
[2022-09-12] MEDS ORDERED: fentaNYL/PF 50MCG/1 ML 2ML syringe ONE (21:07)
[2022-09-12] MEDS ORDERED: midazolam 1 mg/ML 2ml injection ONE (21:08)
[2022-09-12] MEDS ORDERED: ondansetron/PF 4mg/2ml inj ONE (21:17)
[2022-09-12] MEDS ORDERED: LIDOcaine 2% (20mg/ml) 5ml vial ONE (21:17)
[2022-09-12] MEDS ORDERED: dexamethasone sod phosphate 4mg/ml inj. ONE (21:17)
[2022-09-12] MEDS ORDERED: propofol inj 20 ML IV ONE (21:17)
[2022-09-12] MEDS ORDERED: naloxone 0.4 mg/ml inj IV PRN (21:40)
--- NOTE | 2022-09-12 21:50 | NUR ---
PT ARRIVED TO RR VIA BED ACCOMPANIED BY DR MORRISON-ANESTHESIA REPORT GIVEN, VSS, ABD WOUND CLEANED OUT AND WOUND VAC APPLIED IN OR-SETTINGS AT 125MMHG, NO LEAK NOTED. PT HAS 2 PIV-ONE IN EACH UPPER ARM, AWAKE, DENIES PAIN, PT HAS LARGE PANNUS.
--- NOTE | 2022-09-12 22:15 | NUR ---
Received a phone call from recovery. Updated report on Pt received. No needs at this time, will await for Pt to arrive to floor.
--- NOTE | 2022-09-12 22:20 | NUR ---
PT COMFORTABLE AFTER IV TYLENOL, MORPHINE AND REPOSITIONING TO LEFT SIDE, VSS, WOUND VAC UNCHANGED, REPORT CALLED TO NURSE-ALL QUESTIONS ANSWERED, PT TAKEN BACK TO ROOM 4012B, BED LOW AND LOCKED, PRIMARY NURSE IN TO SEE PT.
[2022-09-13] VITALS (8 sets, daily range): BP systolic 87–113; BP diastolic 42–55
--- NOTE | 2022-09-13 04:52 | NUR ---
PLAYGROUND SUPERVISOR documentation: I have reviewed and agree with all interventions, assessments performed and documented by CORKY GALVAN PLAYGROUND SUPERVISOR.
--- NOTE | 2022-09-13 06:33 | NUR ---
Problems reprioritized. Patient report given, questions answered & plan of care reviewed with ENRIQUETA Green.
[2022-09-13 07:06] LABS: POTASSIUM 4.6 MMOL/L (3.5-5.1)
[2022-09-13] MEDS: levoTHYROXINE 100mcg tablet PO SCH (07:15)
[2022-09-13] MEDS: metroNIDAZOLE-Flagyl 500mg/NS 100 ML IV SCH ×2 (07:15)
[2022-09-13] MEDS: aripiprazole 5mg tablet PO SCH (07:22)
[2022-09-13] MEDS: ESCITALOPRAM OXALATE 5 MG TABLET PO SCH (07:23)
[2022-09-13] MEDS: enoxaparin 40mg/0.4ml syringe SQ SCH (07:23)
[2022-09-13] MEDS: K and/or MAG REPLACEMENT MC SCH ×2 (07:24→20:11)
[2022-09-13] MEDS ORDERED: levoFLOXACIN-Levaquin 250mg/D5 50 ML IV SCH (08:00)
[2022-09-13] MEDS: lactose-reduced food (Ensure Enlive) - 237ml bottle PO SCH ×3 (08:44→18:03)
[2022-09-13] MEDS: insulin Lispro (HumaLOG) vial - multi-dose SQ SCH ×3 (08:48→19:14)
[2022-09-13 15:01] LABS: BASOPHILS % (AUTO) 0.1 % (0-1); EOSINOPHILS % (AUTO) 0.1 % (0-6); HEMATOCRIT 31.7 % (35.0-45.0); HEMOGLOBIN 10.4 g/dl (12.0-16.0); LYMPHOCYTES # (AUTO) 0.6 X10'3 (1.1-4.8); LYMPHOCYTES % (AUTO) 5.6 % (21-51); MEAN CORPUSCULAR HEMOGLOBIN 28.4 PG (27.0-31.0); MEAN CORPUSCULAR HGB CONC 32.8 g/dL (33.0-36.5); MEAN CORPUSCULAR VOLUME 86.6 FL (78-98); MEAN PLATELET VOLUME 8.1 FL (7.4-10.4); MONOCYTES # (AUTO) 0.5 X10'3 (0-0.9); MONOCYTES % (AUTO) 4.4 % (2-12); NEUTROPHILS # (AUTO) 9.8 X10'3 (1.8-7.7); NEUTROPHILS % (AUTO) 89.8 % (42-75); PLATELET COUNT 350 X10'3 (140-440); RED BLOOD COUNT 3.66 X10'6 (4.20-5.60); RED CELL DISTRIBUTION WIDTH 13.9 % (11.5-14.5); WHITE BLOOD COUNT 10.9 X10'3 (4.5-11.0)
[2022-09-13 15:11] LABS: ALANINE AMINOTRANSFERASE 17 U/L (12-78); ALBUMIN 1.5 G/DL (3.4-5.0); ALBUMIN/GLOBULIN RATIO 0.3 (1.1-1.5); ALKALINE PHOSPHATASE 127 IU/L (46-116); ANION GAP 8 (8-16); ASPARTATE AMINO TRANSFERASE 15 U/L (10-37); BILIRUBIN,TOTAL 0.3 MG/DL (0.1-1.0); BLOOD UREA NITROGEN 21 MG/DL (7-18); BUN/CREATININE RATIO 14.7 (10.0-20.0); CALCIUM 8.2 MG/DL (8.5-10.1); CHLORIDE 101 MMOL/L (99-107); CREATININE 1.43 MG/DL (0.40-0.90); GLUCOSE 309 MG/DL (70-104); POTASSIUM 4.1 MMOL/L (3.5-5.1); SODIUM 136 MMOL/L (135-145); TOTAL CARBON DIOXIDE 26.7 MMOL/L (24-32); eGFR 37 ML/MIN
--- NOTE | 2022-09-13 18:27 | NUR ---
Patient in room ORTHO 4012. I have received report from ENRIQUETA Green and had the opportunity to ask questions and assume patient care.
--- NOTE | 2022-09-13 18:37 | NUR ---
Problems reprioritized. Patient report given, questions answered & plan of care reviewed with Chacha.
[2022-09-13] MEDS: atorvastatin 20mg tablet PO SCH (20:10)
[2022-09-13] MEDS: linezolid 600mg/300ml PREMIX 300 ML IV SCH (20:23)
[2022-09-13] MEDS: insulin glargine (Lantus) pen - multi-dose SQ SCH (21:33)
[2022-09-13] MEDS: acetaminophen 325mg tablet PO PRN (21:37)
[2022-09-14 06:00] VITALS: BP 96/49
--- NOTE | 2022-09-14 06:03 | NUR ---
Agree with Chacha MCDOONUGH physical assessment except where I documented my findings.
--- NOTE | 2022-09-14 06:26 | NUR ---
Problems reprioritized. Patient report given, questions answered & plan of care reviewed with ENRIQUETA Green.
--- NOTE | 2022-09-14 06:46 | NUR ---
Patient in room ORTHO 4012. I have received report from Chacha and had the opportunity to ask questions and assume patient care.
[2022-09-14] MEDS: K and/or MAG REPLACEMENT MC SCH ×2 (07:12→20:00)
[2022-09-14] MEDS: ESCITALOPRAM OXALATE 5 MG TABLET PO SCH (07:22)
[2022-09-14] MEDS: aripiprazole 5mg tablet PO SCH (07:22)
[2022-09-14] MEDS: linezolid 600mg/300ml PREMIX 300 ML IV SCH ×2 (07:22→20:15)
[2022-09-14] MEDS: enoxaparin 40mg/0.4ml syringe SQ SCH (07:23)
[2022-09-14] MEDS: levoTHYROXINE 100mcg tablet PO SCH (07:23)
[2022-09-14] MEDS: lactose-reduced food (Ensure Enlive) - 237ml bottle PO SCH ×3 (08:44→18:08)
[2022-09-14] MEDS: HYDROcodone/acetaminophen 10/325mg tab PO PRN (08:51)
[2022-09-14 09:01] LABS: BASOPHILS # (AUTO) 0.1 X10'3 (0-0.2); BASOPHILS % (AUTO) 0.4 % (0-1); EOSINOPHILS # (AUTO) 0.1 X10'3 (0-0.9); EOSINOPHILS % (AUTO) 0.8 % (0-6); HEMATOCRIT 33.5 % (35.0-45.0); HEMOGLOBIN 10.6 g/dl (12.0-16.0); LYMPHOCYTES # (AUTO) 2.1 X10'3 (1.1-4.8); LYMPHOCYTES % (AUTO) 15.6 % (21-51); MEAN CORPUSCULAR HEMOGLOBIN 27.6 PG (27.0-31.0); MEAN CORPUSCULAR HGB CONC 31.7 g/dL (33.0-36.5); MEAN CORPUSCULAR VOLUME 86.9 FL (78-98); MEAN PLATELET VOLUME 8.1 FL (7.4-10.4); MONOCYTES # (AUTO) 0.6 X10'3 (0-0.9); MONOCYTES % (AUTO) 4.7 % (2-12); NEUTROPHILS # (AUTO) 10.6 X10'3 (1.8-7.7); NEUTROPHILS % (AUTO) 78.5 % (42-75); PLATELET COUNT 416 X10'3 (140-440); RED BLOOD COUNT 3.85 X10'6 (4.20-5.60); RED CELL DISTRIBUTION WIDTH 14.2 % (11.5-14.5); WHITE BLOOD COUNT 13.5 X10'3 (4.5-11.0)
[2022-09-14] MEDS: insulin Lispro (HumaLOG) vial - multi-dose SQ SCH ×3 (09:13→18:57)
[2022-09-14 09:41] LABS: ALANINE AMINOTRANSFERASE 19 U/L (12-78); ALBUMIN 1.7 G/DL (3.4-5.0); ALBUMIN/GLOBULIN RATIO 0.4 (1.1-1.5); ALKALINE PHOSPHATASE 132 IU/L (46-116); ANION GAP 10 (8-16); ASPARTATE AMINO TRANSFERASE 22 U/L (10-37); BILIRUBIN,TOTAL 0.3 MG/DL (0.1-1.0); BLOOD UREA NITROGEN 25 MG/DL (7-18); BUN/CREATININE RATIO 18.1 (10.0-20.0); CALCIUM 8.6 MG/DL (8.5-10.1); CHLORIDE 100 MMOL/L (99-107); CREATININE 1.38 MG/DL (0.40-0.90); GLUCOSE 255 MG/DL (70-104); SODIUM 137 MMOL/L (135-145); TOTAL CARBON DIOXIDE 27.3 MMOL/L (24-32); TOTAL PROTEIN 6.4 G/DL (6.4-8.2); eGFR 39 ML/MIN
[2022-09-14 09:44] LABS: POTASSIUM 4.2 MMOL/L (3.5-5.1)
[2022-09-14] MEDS ORDERED: levoFLOXACIN 250mg tablet PO SCH ×2 (11:00)
--- NOTE | 2022-09-14 13:09 | NUR ---
WOUND VAC EDUCATION PROVIDED BY WOUND CARE 1. Patient instructed to call the Wound Center or their Home Health Agency immediately if: * They notice a change in the color or amount of the fluid in the canister. * Their wound looks more red than usual or has a foul smell. * The skin around their wound looks reddened or irritated. * The dressing feels loose or appears to be loose. * They experience any increase or changes in their pain. * The alarm will not turn off. 2. Patient instructed that they should not be disconnected from suction for more than 2 hours at a time. * If they are not able to get the suction back on, they need to remove the dressing and take all of the foam out of the wound. * Then moisten sterile gauze with normal saline and place on/in the wound. * Change the dressing once a day until arrangements have been made to replace the wound vac dressing. 3. Patient instructed to turn the wound vac machine OFF and call 911 or go to the ED immediately if their canister fills rapidly with blood. 4. If any of these occur while in the hospital tell a nurse immediately. Addendum: 09/14/22 at 1309 by Liang Tena RN Amended: Links added.
[2022-09-14] MEDS ORDERED: metroNIDAZOLE-Flagyl 500mg/NS 100 ML IV SCH (14:00)
[2022-09-14 18:30] VITALS: BP 89/57
--- NOTE | 2022-09-14 18:30 | NUR ---
Patient in room ORTHO 4012. I have received report from SHARONDA Green and had the opportunity to ask questions and assume patient care. Pt sitting up in chair eating dinner. Addendum: 09/14/22 at 1850 by Slava Lomas RN Amended: Links added.
--- NOTE | 2022-09-14 18:38 | NUR ---
Problems reprioritized. Patient report given, questions answered & plan of care reviewed with Kristine.
[2022-09-14] MEDS ORDERED: metroNIDAZOLE 500mg tablet PO SCH (20:00)
[2022-09-14] MEDS ORDERED: linezolid 600mg tablet PO SCH (20:00)
[2022-09-14] MEDS: atorvastatin 20mg tablet PO SCH (20:15)
[2022-09-14 22:00] VITALS: BP 93/48
[2022-09-14] MEDS: insulin glargine (Lantus) pen - multi-dose SQ SCH (22:08)
[2022-09-15] MEDS: metroNIDAZOLE-Flagyl 500mg/NS 100 ML IV SCH ×2 (04:10→16:05)
--- NOTE | 2022-09-15 06:29 | NUR ---
Problems reprioritized. Patient report given, questions answered & plan of care reviewed with ENRIQUETA Morrison. Addendum: 09/15/22 at 0629 by Slava Lomas RN Amended: Links added.
--- NOTE | 2022-09-15 06:38 | NUR ---
Patient in room ORTHO 4012. I have received report from Alejandra and had the opportunity to ask questions and assume patient care.
[2022-09-15 06:39] VITALS: BP 96/56
[2022-09-15 06:59] LABS: BASOPHILS # (AUTO) 0.1 X10'3 (0-0.2); BASOPHILS % (AUTO) 0.6 % (0-1); EOSINOPHILS # (AUTO) 0.3 X10'3 (0-0.9); EOSINOPHILS % (AUTO) 2.8 % (0-6); HEMATOCRIT 32.8 % (35.0-45.0); HEMOGLOBIN 10.4 g/dl (12.0-16.0); LYMPHOCYTES % (AUTO) 17.7 % (21-51); MEAN CORPUSCULAR HEMOGLOBIN 27.7 PG (27.0-31.0); MEAN CORPUSCULAR HGB CONC 31.8 g/dL (33.0-36.5); MEAN CORPUSCULAR VOLUME 87.1 FL (78-98); MEAN PLATELET VOLUME 8.1 FL (7.4-10.4); MONOCYTES # (AUTO) 0.7 X10'3 (0-0.9); MONOCYTES % (AUTO) 6.6 % (2-12); NEUTROPHILS # (AUTO) 8.1 X10'3 (1.8-7.7); NEUTROPHILS % (AUTO) 72.3 % (42-75); PLATELET COUNT 379 X10'3 (140-440); RED BLOOD COUNT 3.77 X10'6 (4.20-5.60); RED CELL DISTRIBUTION WIDTH 13.8 % (11.5-14.5); WHITE BLOOD COUNT 11.2 X10'3 (4.5-11.0)
[2022-09-15 07:13] LABS: ANION GAP 8 (8-16); BLOOD UREA NITROGEN 21 MG/DL (7-18); BUN/CREATININE RATIO 17.8 (10.0-20.0); CHLORIDE 102 MMOL/L (99-107); CREATININE 1.18 MG/DL (0.40-0.90); GLUCOSE 158 MG/DL (70-104); POTASSIUM 4.3 MMOL/L (3.5-5.1); SODIUM 140 MMOL/L (135-145); TOTAL CARBON DIOXIDE 29.8 MMOL/L (24-32)
[2022-09-15 07:14] LABS: ALANINE AMINOTRANSFERASE 13 U/L (12-78); ALBUMIN 1.5 G/DL (3.4-5.0); ALBUMIN/GLOBULIN RATIO 0.4 (1.1-1.5); ALKALINE PHOSPHATASE 103 IU/L (46-116); ASPARTATE AMINO TRANSFERASE 15 U/L (10-37); BILIRUBIN,TOTAL 0.2 MG/DL (0.1-1.0); CALCIUM 8.2 MG/DL (8.5-10.1); MAGNESIUM 1.9 MG/DL (1.5-2.4); TOTAL PROTEIN 5.4 G/DL (6.4-8.2); eGFR 47 ML/MIN
[2022-09-15] MEDS: enoxaparin 40mg/0.4ml syringe SQ SCH (07:14)
[2022-09-15] MEDS: levoTHYROXINE 100mcg tablet PO SCH (07:15)
[2022-09-15] MEDS: ESCITALOPRAM OXALATE 5 MG TABLET PO SCH (07:15)
[2022-09-15] MEDS: aripiprazole 5mg tablet PO SCH (07:15)
[2022-09-15] MEDS: levoFLOXACIN-Levaquin 500mg/D5 100 ML IV SCH (07:17)
[2022-09-15] MEDS: linezolid 600mg/300ml PREMIX 300 ML IV SCH ×2 (07:18→19:37)
[2022-09-15] MEDS: lactose-reduced food (Ensure Enlive) - 237ml bottle PO SCH ×3 (07:26→18:13)
[2022-09-15] MEDS: K and/or MAG REPLACEMENT MC SCH ×2 (07:26→20:00)
[2022-09-15] MEDS: insulin Lispro (HumaLOG) vial - multi-dose SQ SCH ×3 (08:37→19:56)
[2022-09-15 10:00] VITALS: BP 113/66
--- NOTE | 2022-09-15 10:39 | NUR ---
Reassessment: Per EMR pt POD # 3 s/p abdominal washout. Per EMR pt with a wound VAC in place to abdomen. Noted pt started on Linezolid. Per MD progress notes pt pending transfer to [facility] where she will need to be for 6-8 weeks. Since meals will be provided during admit at [facility] and [facility], low tyramine nutrition therapy education not warranted at this time. Pt continues on CHO controlled diet with improving PO intake, documented with average 71% PO intake of meals and average 79% PO intake of Ensure Enlive TID since 09/13. Combined PO intake of meals and ONS is meeting 100% estimated protein and energy needs. IF pt continues with current average meal intake it would be appropriate to reduce ONS frequency to BID. LBM 09/14 per EMR. Will continue to follow and make recommendations as appropriate. Recommendations: 1. Continue carb controlled diet; consider low-residue diet addition per physician discretion 2. Chocolate Ensure Enlive TIDWM; reduce ONS to BID IF pt continues with current meal intake 3. Bowel care per physician 4. Weekly scaled weights Addendum: 09/15/22 at [address] Amended: Links added.
[2022-09-15 18:00] VITALS: BP 92/54
--- NOTE | 2022-09-15 18:16 | NUR ---
Problems reprioritized. Patient report given, questions answered & plan of care reviewed with
--- NOTE | 2022-09-15 18:46 | NUR ---
Patient in room ORTHO 4012. I have received report from SHAKILA ROBISON and had the opportunity to ask questions and assume patient care.
[2022-09-15] MEDS: insulin glargine (Lantus) pen - multi-dose SQ SCH (20:57)
[2022-09-15] MEDS: atorvastatin 20mg tablet PO SCH (20:58)
[2022-09-15 22:00] VITALS: BP 138/87
[2022-09-16] MEDS: metroNIDAZOLE-Flagyl 500mg/NS 100 ML IV SCH ×2 (04:45→16:39)
[2022-09-16 06:00] VITALS: BP 104/54
--- NOTE | 2022-09-16 06:46 | NUR ---
Problems reprioritized. Patient report given, questions answered & plan of care reviewed with MAKAYLA ROBISON.
[2022-09-16] MEDS: levoTHYROXINE 100mcg tablet PO SCH (07:41)
[2022-09-16 08:00] LABS: ALANINE AMINOTRANSFERASE 13 U/L (12-78); ALBUMIN 1.7 G/DL (3.4-5.0); ALBUMIN/GLOBULIN RATIO 0.4 (1.1-1.5); ALKALINE PHOSPHATASE 98 IU/L (46-116); ANION GAP 8 (8-16); ASPARTATE AMINO TRANSFERASE 16 U/L (10-37); BILIRUBIN,TOTAL 0.3 MG/DL (0.1-1.0); BLOOD UREA NITROGEN 16 MG/DL (7-18); BUN/CREATININE RATIO 13.6 (10.0-20.0); CALCIUM 8.6 MG/DL (8.5-10.1); CHLORIDE 102 MMOL/L (99-107); CREATININE 1.18 MG/DL (0.40-0.90); GLUCOSE 149 MG/DL (70-104); POTASSIUM 4.3 MMOL/L (3.5-5.1); SODIUM 141 MMOL/L (135-145); TOTAL CARBON DIOXIDE 30.7 MMOL/L (24-32); eGFR 47 ML/MIN
[2022-09-16] MEDS: K and/or MAG REPLACEMENT MC SCH ×2 (08:00→20:00)
[2022-09-16] MEDS: lactose-reduced food (Ensure Enlive) - 237ml bottle PO SCH ×3 (08:00→18:00)
[2022-09-16 08:37] LABS: BASOPHILS % (AUTO) 0.3 % (0-1); EOSINOPHILS # (AUTO) 0.3 X10'3 (0-0.9); EOSINOPHILS % (AUTO) 2.8 % (0-6); HEMATOCRIT 33.8 % (35.0-45.0); LYMPHOCYTES # (AUTO) 1.9 X10'3 (1.1-4.8); LYMPHOCYTES % (AUTO) 20.7 % (21-51); MEAN CORPUSCULAR HEMOGLOBIN 28.4 PG (27.0-31.0); MEAN CORPUSCULAR HGB CONC 32.6 g/dL (33.0-36.5); MEAN CORPUSCULAR VOLUME 87.3 FL (78-98); MEAN PLATELET VOLUME 7.9 FL (7.4-10.4); MONOCYTES # (AUTO) 0.6 X10'3 (0-0.9); MONOCYTES % (AUTO) 6.7 % (2-12); NEUTROPHILS # (AUTO) 6.4 X10'3 (1.8-7.7); NEUTROPHILS % (AUTO) 69.5 % (42-75); PLATELET COUNT 397 X10'3 (140-440); RED BLOOD COUNT 3.87 X10'6 (4.20-5.60); RED CELL DISTRIBUTION WIDTH 14.1 % (11.5-14.5); WHITE BLOOD COUNT 9.3 X10'3 (4.5-11.0)
[2022-09-16] MEDS: insulin Lispro (HumaLOG) vial - multi-dose SQ SCH ×3 (09:09→19:29)
[2022-09-16] MEDS: aripiprazole 5mg tablet PO SCH (09:16)
[2022-09-16] MEDS: enoxaparin 40mg/0.4ml syringe SQ SCH (09:16)
[2022-09-16] MEDS: ESCITALOPRAM OXALATE 5 MG TABLET PO SCH (09:16)
[2022-09-16] MEDS: levoFLOXACIN-Levaquin 500mg/D5 100 ML IV SCH (09:21)
[2022-09-16] MEDS: linezolid 600mg/300ml PREMIX 300 ML IV SCH ×2 (13:15→19:29)
[2022-09-16 18:00] VITALS: BP 100/60
--- NOTE | 2022-09-16 19:04 | NUR ---
Patient in room ORTHO 4012. I have received report from MAKAYLA ROBISON and had the opportunity to ask questions and assume patient care.
[2022-09-16] MEDS: insulin glargine (Lantus) pen - multi-dose SQ SCH (21:26)
[2022-09-16] MEDS: atorvastatin 20mg tablet PO SCH (21:35)
[2022-09-16 22:00] VITALS: BP 86/44
[2022-09-17] MEDS: metroNIDAZOLE-Flagyl 500mg/NS 100 ML IV SCH (05:43)
[2022-09-17 06:00] VITALS: BP 88/44
--- NOTE | 2022-09-17 06:51 | NUR ---
Problems reprioritized. Patient report given, questions answered & plan of care reviewed with MAKAYLA ROBISON.
[2022-09-17] MEDS: levoTHYROXINE 100mcg tablet PO SCH (07:40)
[2022-09-17] MEDS: K and/or MAG REPLACEMENT MC SCH ×2 (08:00→20:00)
[2022-09-17] MEDS: lactose-reduced food (Ensure Enlive) - 237ml bottle PO SCH ×3 (08:00→18:00)
[2022-09-17 09:02] LABS: BASOPHILS % (AUTO) 0.5 % (0-1); EOSINOPHILS # (AUTO) 0.3 X10'3 (0-0.9); EOSINOPHILS % (AUTO) 3.8 % (0-6); HEMATOCRIT 33.2 % (35.0-45.0); HEMOGLOBIN 10.7 g/dl (12.0-16.0); LYMPHOCYTES # (AUTO) 1.9 X10'3 (1.1-4.8); LYMPHOCYTES % (AUTO) 21.1 % (21-51); MEAN CORPUSCULAR HEMOGLOBIN 28.1 PG (27.0-31.0); MEAN CORPUSCULAR HGB CONC 32.3 g/dL (33.0-36.5); MEAN CORPUSCULAR VOLUME 86.9 FL (78-98); MEAN PLATELET VOLUME 8.1 FL (7.4-10.4); MONOCYTES # (AUTO) 0.5 X10'3 (0-0.9); MONOCYTES % (AUTO) 5.4 % (2-12); NEUTROPHILS # (AUTO) 6.2 X10'3 (1.8-7.7); NEUTROPHILS % (AUTO) 69.2 % (42-75); PLATELET COUNT 387 X10'3 (140-440); RED BLOOD COUNT 3.82 X10'6 (4.20-5.60); RED CELL DISTRIBUTION WIDTH 14.2 % (11.5-14.5)
[2022-09-17 09:13] LABS: ALANINE AMINOTRANSFERASE 9 U/L (12-78); ALBUMIN 1.7 G/DL (3.4-5.0); ALBUMIN/GLOBULIN RATIO 0.4 (1.1-1.5); ALKALINE PHOSPHATASE 91 IU/L (46-116); ANION GAP 9 (8-16); ASPARTATE AMINO TRANSFERASE 17 U/L (10-37); BILIRUBIN,TOTAL 0.3 MG/DL (0.1-1.0); BLOOD UREA NITROGEN 12 MG/DL (7-18); BUN/CREATININE RATIO 11.2 (10.0-20.0); CALCIUM 8.4 MG/DL (8.5-10.1); CHLORIDE 103 MMOL/L (99-107); CREATININE 1.07 MG/DL (0.40-0.90); GLUCOSE 120 MG/DL (70-104); POTASSIUM 4.2 MMOL/L (3.5-5.1); SODIUM 141 MMOL/L (135-145); TOTAL CARBON DIOXIDE 28.6 MMOL/L (24-32); eGFR 52 ML/MIN
[2022-09-17] MEDS: HYDROcodone/acetaminophen 10/325mg tab PO PRN (09:33)
[2022-09-17] MEDS: aripiprazole 5mg tablet PO SCH (09:33)
[2022-09-17] MEDS: ESCITALOPRAM OXALATE 5 MG TABLET PO SCH (09:34)
[2022-09-17] MEDS: linezolid 600mg/300ml PREMIX 300 ML IV SCH (09:34)
[2022-09-17] MEDS: insulin Lispro (HumaLOG) vial - multi-dose SQ SCH ×2 (09:56→19:48)
[2022-09-17 10:00] VITALS: BP 105/57
[2022-09-17] MEDS: levoFLOXACIN-Levaquin 500mg/D5 100 ML IV SCH (11:58)
[2022-09-17] MEDS: enoxaparin 40mg/0.4ml syringe SQ SCH (11:58)
--- NOTE | 2022-09-17 12:36 | NUR ---
PRESSURE ULCER EDUCATION: DEFINITION: A pressure ulcer is an area of skin that breaks down when you stay in one position too long. The constant pressure against the skin reduces the blood flow to that area and the affected tissue dies. CAUSES: "Being bedridden or in a wheelchair "Fragile skin "Having a chronic condition, such as diabetes or vascular disease "Inability to move certain parts of your body without assistance "Older age "Incontinence of urine or stool SYMPTOMS: "A reddened area that DOES NOT turn white when pressed on - this can be the beginning of a pressure ulcer "A blister, deep sore or a crater - these can be advanced pressure ulcers FIRST AID: "Relieve the pressure on this area "Keep the area clean and dry "Call your primary doctor if you see any of the above symptoms "DO NOT massage the area "DO NOT use a donut shaped or ring shaped pillow- these actually interfere with the blood flow and cause complications PREVENTION: "Check for pressure ulcers everyday "Change position at least every two hours to relieve pressure "Use items that help relieve pressure- pillows, sheepskin, foam padding, and powders. "Keep skin clean and dry "Eat healthy well balanced meals "Exercise daily IF YOU SEE ANY OF THESE SYMPTOMS WHILE IN THE HOSPITAL - TELL YOUR NURSE IMMEDIATELY. IF YOU SEE ANY OF THESE SYMPTOMS WHILE AT HOME OR HAVE ANY QUESTIONS OR CONCERNS ABOUT PRESSURE ULCERS - CALL YOUR PRIMARY DOCTOR IMMEDIATELY. Addendum: 09/17/22 at 1236 by Liang Tena RN Amended: Links added.
[2022-09-17 18:00] VITALS: BP 90/58
[2022-09-17] MEDS: linezolid 600mg tablet PO SCH (21:01)
[2022-09-17] MEDS: metroNIDAZOLE 500mg tablet PO SCH (21:01)
[2022-09-17] MEDS: atorvastatin 20mg tablet PO SCH (21:01)
[2022-09-17] MEDS: insulin glargine (Lantus) pen - multi-dose SQ SCH (21:16)
[2022-09-17 22:00] VITALS: BP 146/87
--- NOTE | 2022-09-18 04:35 | NUR ---
SUPPLY CHAIN ASSOCIATE documentation: I have reviewed and agree with assessment performed and documented by JUDI Jeronimo
[2022-09-18 06:00] VITALS: BP 108/64
--- NOTE | 2022-09-18 06:28 | NUR ---
Problems reprioritized. Patient report given, questions answered & plan of care reviewed with Daniela ROBISON.
[2022-09-18 06:38] LABS: BASOPHILS # (AUTO) 0.1 X10'3 (0-0.2); BASOPHILS % (AUTO) 0.6 % (0-1); EOSINOPHILS # (AUTO) 0.4 X10'3 (0-0.9); EOSINOPHILS % (AUTO) 4.1 % (0-6); HEMATOCRIT 31.8 % (35.0-45.0); HEMOGLOBIN 10.4 g/dl (12.0-16.0); LYMPHOCYTES # (AUTO) 1.8 X10'3 (1.1-4.8); LYMPHOCYTES % (AUTO) 19.4 % (21-51); MEAN CORPUSCULAR HEMOGLOBIN 28.5 PG (27.0-31.0); MEAN CORPUSCULAR HGB CONC 32.8 g/dL (33.0-36.5); MEAN CORPUSCULAR VOLUME 86.7 FL (78-98); MEAN PLATELET VOLUME 7.6 FL (7.4-10.4); MONOCYTES # (AUTO) 0.6 X10'3 (0-0.9); MONOCYTES % (AUTO) 6.2 % (2-12); NEUTROPHILS # (AUTO) 6.4 X10'3 (1.8-7.7); NEUTROPHILS % (AUTO) 69.7 % (42-75); PLATELET COUNT 388 X10'3 (140-440); RED BLOOD COUNT 3.66 X10'6 (4.20-5.60); RED CELL DISTRIBUTION WIDTH 14.6 % (11.5-14.5); WHITE BLOOD COUNT 9.2 X10'3 (4.5-11.0)
[2022-09-18 07:31] LABS: ALANINE AMINOTRANSFERASE 11 U/L (12-78); ALBUMIN 1.8 G/DL (3.4-5.0); ALBUMIN/GLOBULIN RATIO 0.4 (1.1-1.5); ALKALINE PHOSPHATASE 90 IU/L (46-116); ANION GAP 9 (8-16); ASPARTATE AMINO TRANSFERASE 14 U/L (10-37); BILIRUBIN,TOTAL 0.3 MG/DL (0.1-1.0); BLOOD UREA NITROGEN 11 MG/DL (7-18); BUN/CREATININE RATIO 10.1 (10.0-20.0); CALCIUM 8.3 MG/DL (8.5-10.1); CHLORIDE 103 MMOL/L (99-107); CREATININE 1.09 MG/DL (0.40-0.90); GLUCOSE 106 MG/DL (70-104); SODIUM 139 MMOL/L (135-145); TOTAL CARBON DIOXIDE 26.7 MMOL/L (24-32); TOTAL PROTEIN 5.9 G/DL (6.4-8.2); eGFR 51 ML/MIN
[2022-09-18] MEDS: K and/or MAG REPLACEMENT MC SCH (08:00)
[2022-09-18] MEDS: lactose-reduced food (Ensure Enlive) - 237ml bottle PO SCH ×3 (08:00→18:00)
[2022-09-18] MEDS: ESCITALOPRAM OXALATE 5 MG TABLET PO SCH (09:05)
[2022-09-18] MEDS: aripiprazole 5mg tablet PO SCH (09:05)
[2022-09-18] MEDS: linezolid 600mg tablet PO SCH ×2 (09:06→19:18)
[2022-09-18] MEDS: enoxaparin 40mg/0.4ml syringe SQ SCH (09:07)
[2022-09-18] MEDS: insulin Lispro (HumaLOG) vial - multi-dose SQ SCH ×2 (09:18→19:17)
[2022-09-18 10:00] VITALS: BP 88/49
[2022-09-18] MEDS: levoTHYROXINE 100mcg tablet PO SCH (10:15)
[2022-09-18] MEDS ORDERED: levoFLOXACIN 500mg tablet PO SCH (11:00)
[2022-09-18] MEDS: metroNIDAZOLE 500mg tablet PO SCH ×2 (12:30→19:18)
[2022-09-18 18:00] VITALS: BP 99/58
--- NOTE | 2022-09-18 18:47 | NUR ---
Report to Pooja ROBISON
[2022-09-18] MEDS: atorvastatin 20mg tablet PO SCH (19:18)
--- NOTE | 2022-09-18 20:38 | NUR ---
Patient being transferred to [facility] via [facility]. Wound vac clamped for transport. Report called to Primary nurse at [facility]. IV left in for transfer. Pt appropriate, alert.
--- NOTE | 2022-09-18 22:12 | NUR ---
Patients cpap was left in room on discharge, found by housekeeping, brought up to nurses station. Patients hospital roommate states she has patients number and notified her and patient will have family member pick out hand tomorrow.
== END 2022-09-18 20:35 | DRG 329 ==
LOC: PAS IN 12:45 → UNDOADMIN 12:45 → PAS IN 14:34 → ORTHO 4S 23:00
PROVIDERS: ADMIT Surgery; ATTEND Family Medicine
PROC: 0DJD8ZZ Inspection of Lower Intestinal Tract, Via Natural or Artificial Opening Endoscopic (ICD-10-PCS; 2022-09-04)
PROC: 8E0W4CZ Robotic Assisted Procedure of Trunk Region, Percutaneous Endoscopic Approach (ICD-10-PCS; 2022-09-04)
PROC: 0DBL0ZZ Excision of Transverse Colon, Open Approach (ICD-10-PCS; principal; 2022-09-04 16:19)
PROC: 0W9F0ZZ Drainage of Abdominal Wall, Open Approach (ICD-10-PCS; 2022-09-12)
DX: C19 Malignant neoplasm of rectosigmoid junction (principal); J96.00 Acute respiratory failure, unspecified whether with hypoxia or hypercapnia; N17.0 Acute kidney failure with tubular necrosis; K63.3 Ulcer of intestine; T81.41XA Infection following a procedure, superficial incisional surgical site, initial encounter; Z68.42 Body mass index [BMI] 45.0-49.9, adult; D62 Acute posthemorrhagic anemia; B95.2 Enterococcus as the cause of diseases classified elsewhere; E03.9 Hypothyroidism, unspecified; N18.30 Chronic kidney disease, stage 3 unspecified; F41.1 Generalized anxiety disorder; B96.20 Unspecified Escherichia coli [E. coli] as the cause of diseases classified elsewhere; E11.22 Type 2 diabetes mellitus with diabetic chronic kidney disease; E11.65 Type 2 diabetes mellitus with hyperglycemia; E66.01 Morbid (severe) obesity due to excess calories; Y83.8 Other surgical procedures as the cause of abnormal reaction of the patient, or of later complication, without mention of misadventure at the time of the procedure; E78.5 Hyperlipidemia, unspecified; F32.A Depression, unspecified; G89.4 Chronic pain syndrome; K57.90 Diverticulosis of intestine, part unspecified, without perforation or abscess without bleeding; Z53.31 Laparoscopic surgical procedure converted to open procedure; Z88.0 Allergy status to penicillin; Z88.5 Allergy status to narcotic agent; Z79.899 Other long term (current) drug therapy; Y92.89 Other specified places as the place of occurrence of the external cause
CPT/HCPCS: Z7506; Z7508; 36415; 71045; 80048; 80053; 82550; 82948; 83036; 83690; 83735; 83880; 84132; 84443; 84484; 85025; 87070; 87075; 87077; 87081; 87186; 93005; 97110; 97116; 97161; 97164; 97530; A4215; A4421; A4615; A4618; A4649; A5200; A6253; A6258; A6449; A6550; A7000; C1758; C9113; C9290; G0378; J0131; J0780; J1100; J1170; J1580; J1650; J1815; J1956; J2020; J2250; J2270; J2405; J2704; J2710; J3010; J3490; J7030; J7040; J7120